=== PATIENT | female | born 1970 | race Caucasian/White ===

== ENCOUNTER 2022-12-11 16:20 | Emergency (ER) | payer BC ==
[~2022-12-11] VITALS: Ht 167.6 cm; Wt 77.1 kg
--- NOTE | 2022-12-11 16:48 | NUR ---
seen and examined by MD Escobar
[2022-12-11] MEDS ORDERED: IBUP-1955 PO (17:26)
[2022-12-11] MEDS ORDERED: CYCL5TAB PO (17:26)
--- NOTE | 2022-12-11 17:41 | NUR ---
PT WAS D/C'd TO HOME. D/C INSTRUCTIONS GIVEN TO THE PT BY DR MARX.
[2022-12-11 17:42] VITALS: BP 136/74
== END 2022-12-11 17:43 | disposition home or self-care (01) ==
LOC: ER 16:20
DX: M54.12 Radiculopathy, cervical region (principal); D17.79 Benign lipomatous neoplasm of other sites
CPT/HCPCS: A4663